=== PATIENT | male | born 1980 | race Caucasian/White ===

== ENCOUNTER 2017-08-19 09:13 | Emergency (ER) | payer OTHER ==
[~2017-08-19] VITALS: Ht 190.5 cm; Wt 83.9 kg
--- NOTE | 2017-08-19 09:45 | ED PSYCHIATRIC COMPLAINT ---
See Addendum History of Present Illness General Chief Complaint: ETOH/Drug Related Complaint Stated Complaint: HIGHWATCH CLEARANCE Source: patient Exam Limitations: no limitations Vital Signs & Intake/Output Vital Signs & Intake/Output Vital Signs Date Time Temp Pulse Resp B/P B/P Pulse O2 O2 Flow FiO2 Mean Ox Delivery Rate 08/20 0807 98.0 100 18 126/84 100 Room Air 08/20 0615 97.4 74 18 136/89 08/20 0615 97.4 74 18 136/89 99 Room Air 08/20 0415 97.7 74 16 124/90 08/20 0415 97.7 74 16 124/90 97 Room Air 08/20 0227 97.0 99 18 118/80 08/20 0227 97.7 99 18 118/80 97 Room Air 08/20 0012 97.6 73 18 122/89 08/20 0012 97.6 73 18 122/89 100 Room Air 08/19 2209 98.9 85 18 139/89 100 08/19 1917 97.8 98 18 162/97 08/19 1914 97.8 98 18 162/97 98 Room Air 08/19 1710 97.6 96 18 166/98 08/19 1309 98.3 76 20 140/98 08/19 0951 96.4 96 18 167/101 08/19 0917 96.4 96 18 167/101 97 Room Air ED Intake and Output 08/20 0000 08/19 1200 Intake Total Output Total Balance Patient 185 lb Weight Weight Reported by Patient Measurement Method Allergies Coded Allergies: No Known Allergies (08/19/17) Reconcile Medications No Known Home Medications Triage Note: 36 Y/O MALE STATES HE IS HERE FOR HIGHWATCH CLEARANCE. STATES HE HAS BEEN DRINKING DAILY OR EVERY OTHER DAY FOR LAST SIX MONTHS; APPROX 1L MOUTHWASH, 28% ALCOHOL PER PT. STATES HE HAS DETOXED HIMSELF AT HOME AND USUALLY GETS "SHAKY AND SWEATY". DENIES HX SEIZURES. STATES LAST DRINK 36 HOURS AGO. STATES "I FEEL PRETTY GOOD". DENIES PHYSICAL COMPLAINTS. C/O FEELING ANXIOUS, "I DRANK TOO MUCH COFFEE". Triage Nurses Notes Reviewed? yes Onset: Abrupt Duration: 6 months Timing: recent history HPI: 36-year-old male comes into the emergency room for further evaluation of medical clearance for detox. Patient [facility]. He needs medical clearance. He admits to drinking a liter or 2 of mouthwash every other day. Denies any history of withdrawal seizures. Denies any history of DTs. Denies any SI or HI. Denies any other associated drug use. His last drink was about 36 hours ago. He comes in for further evaluation. (Preston Kat) Past History Travel History Traveled to [place] past 21 day No Medical History Any Pertinent Medical History? see below for history Neurological: NONE EENT: NONE Cardiovascular: NONE Respiratory: NONE Gastrointestinal: NONE Hepatic: NONE Renal: NONE Musculoskeletal: NONE Psychiatric: NONE Endocrine: NONE Blood Disorders: NONE Cancer(s): NONE BRASS FINISHER/Reproductive: NONE Surgical History Surgical History: appendectomy Psychosocial History What is your primary language Mosotho Tobacco Use: Never used ETOH Use: heavy use, alcoholic Illicit Drug Use: denies illicit drug use Family History Hx Contributory? No (Preston Kat) Review of Systems Review of Systems Constitutional: Reports: no symptoms. EENTM: Reports: no symptoms. Respiratory: Reports: no symptoms. Cardiovascular: Reports: no symptoms. GI: Reports: no symptoms. Genitourinary: Reports: no symptoms. Musculoskeletal: Reports: no symptoms. Skin: Reports: no symptoms. Neurological/Psychological: Reports: see HPI. Hematologic/Endocrine: Reports: no symptoms. Immunologic/Allergic: Reports: no symptoms. All Other Systems: Reviewed and Negative (Preston Kat) Physical Exam Physical Exam General Appearance: well developed/nourished, mild distress Head: atraumatic Eyes: Bilateral: normal appearance. Ears, Nose, Throat: normal ENT inspection, hearing grossly normal Neck: normal inspection Respiratory: normal breath sounds, no respiratory distress Cardiovascular: regular rate/rhythm Extremities: normal range of motion Neurological/Psychiatric: no motor/sensory deficits, awake, alert Appearance/Memory/Insight: appropriate appearance Behavoir/Eye Contact/Speech: cooperative Thoughts/Hallucinations: no apparent hallucination Skin: intact, normal color, warm/dry (Preston Kat) SAD PERSONS Done? patient not suicidal (Vish MORLEY,[place]) Progress Differential Diagnosis: dementia, drug intoxication, drug overdose, drug withdrawal Plan of Care: Orders Procedure Date/time Status Regular Diet 08/19 L Active CIWA 08/19 917 Active URINE DRUGS OF ABUSE 08/19 917 Complete ETHANOL 08/19 917 Complete COMPREHENSIVE METABOLIC PANEL 08/19 917 Complete CBC WITHOUT DIFFERENTIAL 08/19 917 Complete Laboratory Tests 08/19/17 1012: Anion Gap 8, Estimated GFR > 60, BUN/Creatinine Ratio 22.9, Glucose 88, Calcium 9.6, Total Bilirubin 0.4, AST 36, ALT 38, Alkaline Phosphatase 69, Total Protein 6.6, Albumin 4.1, Globulin 2.5, Albumin/Globulin Ratio 1.6, CBC w Diff NO MAN DIFF REQ, RBC 3.99 L, MCV 97.0 H, MCH 33.2 H, MCHC 34.2, RDW 14.1, MPV 8.5, Gran % 77.4 H, Lymphocytes % 9.7 L, Monocytes % 10.3 H, Eosinophils % 1.9, Basophils % 0.7, Absolute Granulocytes 3.3, Absolute Lymphocytes 0.4 L, Absolute Monocytes 0.4, Absolute Eosinophils 0.1, Absolute Basophils 0, Serum Alcohol < 10.0 08/19/17 1010: Urine Opiates Screen < 100.00, Methadone Screen < 40, Barbiturate Screen < 60, Ur Phencyclidine Scrn < 6.00, Amphetamines Screen < 100, U Benzodiazepines Scrn < 85, Urine Cocaine Screen < 50, Urine Cannabis Screen < 5.00 (Preston Kat) Hand-Off Endorsed To: Enio Welsh DO Endorsed Time: 0700 Pending: consult (Vish MORLEY,[place]) Departure Departure Disposition: STILL A PATIENT Condition: Stable Clinical Impression Primary Impression: ETOH abuse Referrals: Enio Welsh DO ([facility]) (PCP/Family) Departure Forms: Customer Survey General Discharge Information (Preston Kat) PA/SPOT WORKER Co-Sign Statement Statement: ED Attending supervision documentation- [] I saw and evaluated the patient. I have also reviewed all the pertinent lab results and diagnostic results. I agree with the findings and the plan of care as documented in the PA's/SPOT WORKER's documentation. [x] I have reviewed the ED Record and agree with the PA's/SPOT WORKER's documentation. [] Additions or exceptions (if any) to the PAs/SPOT WORKER's note and plan are summarized below: [] (Vish MORLEY,[place].) Departure Prescriptions: Current Visit Scripts No Known Home Medications Comments 08/20/17 7:51 AM The patient was signed out to me by Dr. Wahl at 7 AM. He is awake alert and oriented 3. Minimal tremors. Vital signs are stable he was cleared for discharge high [facility]. (Enio Welsh DO)
[2017-08-19 10:28] LABS: ABSOLUTE BASOPHIL COUNT 0 /CUMM (0.0-0.2); ABSOLUTE EOSINOPHIL COUNT 0.1 /CUMM (0.0-0.7); ABSOLUTE GRANULOCYTE CT 3.3 /CUMM (1.4-6.5); ABSOLUTE LYMPH COUNT 0.4 /CUMM (1.2-3.4); ABSOLUTE MONOCYTE COUNT 0.4 /CUMM (0.10-0.60); BASOPHIL % 0.7 % (0.0-2.0); EOSINOPHIL % 1.9 % (0-5); GRANULOCYTE % 77.4 % (42.2-75.2); HEMATOCRIT 38.7 % (42-52); MEAN CORPUSCULAR HGB 33.2 PG (27.0-31.0); MEAN CORPUSCULAR HGB CONC 34.2 G/DL (33.0-37.0); MEAN PLATELET VOLUME 8.5 FL (7.4-10.4); PLATELET COUNT 187 /CUMM (130-400); RBC DISTRIBUTION WIDTH 14.1 % (11.5-14.5); RED BLOOD CELL CT 3.99 /CUMM (4.70-6.10); WHITE BLOOD CELL COUNT 4.2 /CUMM (4.8-10.8)
[2017-08-20 08:07] VITALS: BP 126/84
== END 2017-08-20 08:25 ==
LOC: ERH 09:13
PROVIDERS: Physician Assistant Medical
DX: F10.10 Alcohol abuse, uncomplicated (principal)
CPT/HCPCS: 80307; G0480